=== PATIENT | male | born 1975 | race African-American/Black ===

== ENCOUNTER 2017-02-13 17:37 | Emergency (ER) | payer SELFPAY ==
[2017-02-13 17:42] VITALS: BP 134/90; BMI 32.2
--- NOTE | 2017-02-13 17:54 | DR.GENAD ---
HPI - PCP Primary Care Physician: none - HPI Comment HPI Comment: NO TRAUMA. COMPRESSION FRACTURE SEVERAL YEARS AGO WITH RESIDUAL PAIN. PAIN ALSO GOES TO BOTH LEGS. NO FEVER OR JOINT SWELLING. - Complaint/Symptoms Chief Complaint Doctors Comments: LOWER BACK PAIN AND LEFT HIP PAIN. Chief Complaint:: lower back pain with both legs hurting - Nurses notes reviewed Nurses Notes Review: Yes - Source History Provided: Patient - Mode of Arrival Mode of Arrival: Ambulatory - Timing Onset of Chief Complaint: 01/26/17 Came on: Gradually - Duration Duration: Constant Duration: Days - Severity Severity: Moderate PMH - PMH Past Medical History: No Past Surgical History: No - Family History History of Family Medical Conditions: No - Social History Does patient currently use any type of tobacco product: Yes Have you used tobacco products in the last 12 months: Yes Type of Tobacco Use: Cigarettes Does any household member use tobacco: No Alcohol Use: Occasionally Do you use any recreational Drugs:: No Lives With: Family Lives Where: Home - infectious screening In the last 2 months have you had wt loss of >10#?: NO Have you had fever, night sweats or hemotysis?: No Have you traveled outside the country in the last 6 months?: No Isolation: Standard ROS - Review of Systems Constitutional: No Symptoms Reported Eyes: No Symptoms Reported ENTM: No Symptoms Reported Respiratoy: No Symptoms Reported Cardiovascular: No Symptoms Reported Gastrointestinal/Abdominal: No Symptoms Reported Genitourinary: No Symptoms Reported Neurological: No Symptoms Reported Musculoskeletal: Back Pain, Left, Back, Hip Integumentary: No Symptoms Reported Hematologic/Lymphatic: No Symptoms Reported Endocrine: No Symptoms Reported All Other Systems: Reviewed and Negative PE - Vital Signs Vitals: Temperature 98 F Pulse Rate 86 Respiratory Rate 18 Blood Pressure 134/90 O2 Sat by Pulse Oximetry 98 - General Limitations: No Limitations General Appearance: Alert - Head Head Exam: Normal Inspection - Eyes Eye exam: Normal Appearance - ENT ENT Exam: Normal External Ear Exam External Ear Exam: Normal External Inspection TM/Canal Exam: Bilateral Normal Nose Exam: Normal Nose Exam Mouth Exam: Normal Inspection Throat Exam: Tonsillar Erythema - Neck Neck Exam: Trachea Midline - Chest Chest Inspection: Symmetric Chest Wall Rise - Respiratory Respiratory Exam: Normal Lung Sounds Bilat Respiratory Exam: Bilateral Clear to Auscultation - Cardiovascular Cardiovascular Exam: Regular Rate, Normal Rhythm, Normal Heart Sounds - Abdominal Exam Abdominal Exam: Normal Bowel Sounds, Soft. negative: Tenderness - Extremities Extremities Exam: Tenderness (LEFT HIP.ROM DECREASE.) - Back Back Exam: Paraspinal Tenderness (LOWER BACK.) - Neurologic Neurological Exam: Alert, Oriented X3 - Psychiatric Psychiatric Exam: Anxious - Skin Skin Exam: Normal Color MDM - Additional Information Additional Information Obtained From: Family - Differential Diagnosis Differential Diagnosis: LOW BACK AND HIP SPRAIN, FRACTURE OR DJD. Course - Treatment Treatment: SEE ORDERS. IM PAIN MED, PAIN IMPROVING. - Education/Counseling Education/Counseling: Patient, Family, Education Educated On: Treatment, Diagnosis, Needs for Follow Up ROR - Labs Reviewed Laboratory: D-Dimer 145 ng/mL (0-400) 02/13/17 18:05 - XRAY XRAY Interpreted by: Radiologist XRAY Findings: REPORT DISCUSS WITH PATIENT. - Diagnosis Discharge Problem: Lumbosacral strain Qualifiers: Encounter type: initial encounter Qualified Code(s): S39.012A - Strain of muscle, fascia and tendon of lower back, initial encounter Sciatica Qualifiers: Laterality: left Qualified Code(s): M54.32 - Sciatica, left side - Discharge Plan Disposition: 01 HOME, SELF-CARE Condition: Stable Prescriptions: Cyclobenzaprine HCl [FLEXERIL 10 MG *] 10 mg PO TID PRN #20 tab PRN Reason: Ibuprofen [MOTRIN TAB 600 MG *] 600 mg PO TID PRN #20 tab PRN Reason: Pain/Inflammation - Follow ups/Referrals Follow ups/Referrals: NFD,None [Primary Care Provider] - 3 days - Instructions Instructions: Back Pain, Adult, [id number], Muscle Strain, [id number] Additional Instructions: RETURN TO ED IF WORSE.
[2017-02-13] MEDS ORDERED: NORFLEX INJ IVP ONE (17:55)
[2017-02-13] MEDS ORDERED: TORADOL 60 MG VIAL IM ONE (17:57)
[2017-02-13] MEDS ORDERED: NORFLEX INJ ONE (18:06)
[2017-02-13] MEDS ORDERED: TORADOL 60 MG VIAL ONE (18:06)
--- NOTE | 2017-02-13 18:30 | RAD ---
Lumbar spine three views Indication: Lower back pain. Findings: There is no cortical lucency or malalignment. Mild disk degenerative change of the thoraco lumbar junction is noted. Impression: No acute osseous abnormality. Minimal degenerative change. Reported By:
== END 2017-02-13 19:38 | disposition home or self-care (01) ==
LOC: ER 17:45
DX: S39.012A Strain of muscle, fascia and tendon of lower back, initial encounter (principal); M54.32 Sciatica, left side; Y33.XXXA Other specified events, undetermined intent, initial encounter; Y92.9 Unspecified place or not applicable
CPT/HCPCS: 36415; 72110; 85378; 96372; 99282; 99283; J1885; J2360